=== PATIENT | female | born 2005 | race Caucasian/White ===

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

== ENCOUNTER 2024-05-25 14:23 | Emergency (ER) | payer MEDICAID, SELFPAY ==
[2024-05-25 14:25] VITALS: BP 132/96; PULSE 120; RESP 12; TEMP 36.7; O2SAT 98
--- NOTE | 2024-05-25 14:30 | DI.RAD_ITS ---
Exam(s) XR KNEE RT 4V AP,LAT,BLANCA,PAT EXAM: XR KNEE RT 4V AP,LAT,BLANCA,PAT CLINICAL HISTORY: dog bite, ?fracture. TECHNIQUE: 2D digital imaging was performed. Three views. COMPARISON: No exams were available for comparison FINDINGS: BONES: No acute fracture is present. No bony destructive lesion is seen. JOINTS: The knee is normally aligned. No joint effusion is seen. SOFT TISSUE: Laceration cm medial soft tissues. No foreign body. IMPRESSION: Medial soft tissue laceration. DATA REPOSITORY: RADIATION DOSE DELIVERED:
--- NOTE | 2024-05-25 14:35 | ED.GENADUL_ITS ---
Discharge Plan Disposition Patient Disposition: Home Condition: Stable Discharge Details Clinical Impression: Dog bite of right knee Primary Care Provider: Xena Murrieta ED Provider: Dayton Souza Home Meds and New Rx's Prescriptions: New amoxicillin-pot clavulanate 875-125 mg tablet 1 tab PO BID Qty: 20 0RF Continued famotidine 10 mg tablet 10 mg PO BID Qty: 60 1RF tretinoin 0.05 % cream 1 applic topical QHS Qty: 45 1RF ondansetron HCl 4 mg tablet 4 mg PO Q8H PRN (Reason: nausea and vomiting) Qty: 10 0RF acetaminophen [Tylenol Extra Strength] 500 mg Tablet 500 mg PO Q4H PRN ibuprofen [Ibuprofen IB] 200 mg Tablet 600 mg PO Q6H PRN loratadine [Claritin] 10 mg Tablet 10 mg PO PRN PRN Discharge Instructions Additional Instructions: Keep the wound covered and apply topical antibiotic such as Neosporin or bacitracin until it healed. If you have spreading redness from the wound or yellow-white discharge from the wound return to the emergency department for reevaluation HPI General Mode of arrival: ambulatory . Date/Time Provider Initiated Documentation: 05/25/24 14:27 . Limitations to Documentation: no limitations . Information obtained by: patient . History of Present Illness 18 year old F presents to the emergency department with the chief complaint of right knee dog bite, described as mild, Quality is described as aching, and is localized to the right and lower extremity. Patient reports no radiation. Patient started experiencing this hour(s) (1) and it has been constant. No relieving factors improve symptom(s), No exacerbating factors reported . Patient notes no other symptoms.. Patient did receive the following treatments prior to arrival, none Related Data Home Medications ?Medication ?Instructions ?Recorded ?Confirmed acetaminophen 500 mg tablet 500 mg PO Q4H PRN 08/29/18 05/25/24 (Tylenol Extra Strength) ibuprofen 200 mg tablet (Ibuprofen 600 mg PO Q6H PRN 11/19/18 05/25/24 IB) loratadine 10 mg tablet (Claritin) 10 mg PO PRN PRN 10/21/20 05/25/24 tretinoin 0.05 % topical cream 1 applic topical QHS #45 grams 10/25/20 05/25/24 famotidine 10 mg tablet 10 mg PO BID #60 tabs 07/10/21 05/25/24 ondansetron HCl 4 mg tablet 4 mg PO Q8H PRN nausea and 12/20/21 05/25/24 vomiting #10 tabs amoxicillin 875 mg-potassium 1 tab PO BID #20 tabs 05/25/24 clavulanate 125 mg tablet Previous Rx's ?Medication ?Instructions ?Recorded tretinoin 0.05 % topical cream 1 applic topical QHS #45 grams 10/25/20 famotidine 10 mg tablet 10 mg PO BID #60 tabs 07/10/21 ondansetron HCl 4 mg tablet 4 mg PO Q8H PRN nausea and 12/20/21 vomiting #10 tabs amoxicillin 875 mg-potassium 1 tab PO BID #20 tabs 05/25/24 clavulanate 125 mg tablet Allergies Allergy/AdvReac Type Severity Reaction Status Date / Time No Known Allergies Allergy Verified 12/24/23 16:58 General Stated Complaint: AnimalBite KASSIDY: 4 Review of Systems All systems reviewed & are unremarkable except as noted in HPI and below Constitutional Constitutional: Denies chills, Denies fever(s) and Denies weakness Gastrointestinal Gastrointestinal: Denies vomiting Musculoskeletal Musculoskeletal: Denies joint swelling Neurologic Neurologic: Denies weakness Exam Const General: no acute distress Orientation: alert HENCA Head: normal to inspection Ears: external ears normal General nose exam: external nose normal Mouth: moist mucous membranes Eyes General: appearance normal, both eyes and all related structures Neck Neck: normal visual inspection Resp Effort & Inspection: normal respiratory effort and able to speak in complete sentences Cardio Rate: regular rate Skin General skin exam: no rashes or lesions noted Neuro General: patient alert and patient oriented x3 Extrem General: full ROM and capillary refill normal Psych Mental Status: mental status grossly normal Course Vital Signs Vital signs: Vital Signs Temperature 36.7 C 05/25/24 14:25 Pulse 120 H 05/25/24 14:25 Respiratory Rate 12 05/25/24 14:25 Blood Pressure 132/96 H 05/25/24 14:25 Pulse Oximetry 98 05/25/24 14:25 Temperature 36.7 C 05/25/24 14:25 Pulse 120 H 05/25/24 14:25 Respiratory Rate 12 05/25/24 14:25 Blood Pressure 132/96 H 05/25/24 14:25 Pulse Oximetry 98 05/25/24 14:25 Oxygen Delivery Method Room Air 05/25/24 14:25 Oxygen Flow Rate 0 05/25/24 14:25 Pain Level 6 05/25/24 14:25 Medical Decision Making 18-year-old female comes in with a dog bite to the right knee. She says that her dog and friend's dog were playing and they tried to break them up one of the dogs bit her right knee. Did not fall or sustain any other injuries. She says both dogs are up-to-date on the rabies shots. She is alert and oriented on arrival and appears well. She has a puncture wound on the right lateral mid knee with a 2 x 3 cm area where appears the skin has been ripped off and is superficial. She has full range of motion of the knee, intact distal sensation and pulses. There is no bleeding currently. Will obtain x-rays to exclude fracture vs foreign body. No acute findings on x-ray, patient stable. Wounds were copiously irrigated with sterile saline. Discussed placing a stitch or 2 in the wound on the left but she does not want stitches which I feel is reasonable given increased risk of infection. Will have nursing place Steri-Strips and place bacitracin on it and apply dressing. She is stable for discharge, advised follow-up with PCP as needed and return precautions given Differential Diagnosis Differential Diagnosis: Dog bite, abrasion Quality:SDOH Health Related Social Needs: No Data to Display PFSH All Active Problems (Updated 05/25/24 @ 15:20 by Dayton Souza MD) Dog bite of right knee (Acute) Acne (Acute) Depo-Provera contraceptive status (Acute) Pyelonephritis (Acute) Left flank pain (Acute) Menorrhagia (Chronic) With dysmenorrhea Constipation (Acute 09/13/08) Esotropia (Acute) Dental caries (Acute 09/21/17) Routine child health exam (Acute 02/02/14) Medical History Cat bite of left hand with infection Surgical History Tonsillectomy and adenoidectomy age 4 Myringotomy w/ PE (pressure equalizing) tubes age 4 Family History Grandmother Diabetes MGM - started in Mother Overweight Social History Smoking/Tobacco Use Status: Current-Occasional Tobacco Type: e-cigarettes Second Hand Exposure: Yes Smoking risk assessment performed?: Yes Alcohol Intake: current Alcohol Intake frequency: holidays/special occasions only Drug use: Occasionally Substance use type: marijuana Details: THC for sleep Housing: apartment Education Level: high school Details: 9th grade Current gender identity: female Seatbelt use: always Helmet use: Yes Helmet use: sometimes Fire extinguisher in home: No Carbon monox detector in home: Yes Firearms in home: No Do you feel safe at home: Yes Do you feel safe in your relationship?: Yes
[2024-05-25] MEDS: Lidocaine/Epinephri/Tetracaine Topical Gel 3 ML TP (14:38)
[2024-05-25] MEDS: Amoxicillin 875/Clav. 125 TAB PO (14:38)
[2024-05-25 14:42] VITALS: RESP 16; O2SAT 100
== END 2024-05-25 15:36 | disposition home or self-care (01) ==
PROVIDERS: Emergency Provider Emergency Medicine; PCP Nurse Practitioner Family
DX: S81.011A Laceration without foreign body, right knee, initial encounter (principal); F17.290 Nicotine dependence, other tobacco product, uncomplicated; W54.0XXA Bitten by dog, initial encounter; Y93.89 Activity, other specified; Y92.018 Other place in single-family (private) house as the place of occurrence of the external cause
CPT/HCPCS: 99283; 73564

== ENCOUNTER 2025-01-21 14:25 | Emergency (ER) | payer SELFPAY ==
[2025-01-21 14:28] VITALS: BP 113/69; PULSE 103; RESP 20; TEMP 36.7; O2SAT 99
[2025-01-21 14:31] VITALS: BP 113/69; PULSE 103; RESP 20; TEMP 36.7; O2SAT 99
--- NOTE | 2025-01-21 14:45 | ED.GENADUL_ITS ---
Discharge Plan Disposition Patient Disposition: Home Discharge Details Clinical Impression: Dysuria, Hypokalemia Primary Care Provider: Xena Murrieta ED Provider: Elenita Thibodeaux Home Meds and New Rx's Prescriptions: New cephalexin 500 mg capsule 500 mg PO BID 4 Days Qty: 8 0RF phenazopyridine [Pyridium] 100 mg tablet 100 mg PO TID PRNQty: 14 0RF No Action acetaminophen [Tylenol Extra Strength] 500 mg Tablet 500 mg PO Q4H PRN ibuprofen [Ibuprofen IB] 200 mg Tablet 600 mg PO Q6H PRN loratadine [Claritin] 10 mg Tablet 10 mg PO PRN PRN Discharge Instructions Instructions: Dysuria (ED) Additional Instructions: take the antibiotics as prescribed use the pyridium as needed for symptoms follow up with PCP if you symptoms recur HPI General Date/Time Provider Initiated Documentation: 01/21/25 14:26 . Limitations to Documentation: no limitations . Information obtained by: patient . HPI Narrative: 19-year-old female without significant past medical history presents for evaluation of dysuria and right-sided flank pain. She reports that she has had symptoms for about a week. She reports that the symptoms are consistent with prior urinary tract infection. She states that she has been taking [id number] Azo urinary defense without improvement. Denies any fever, chills nausea or vomiting. Has been eating and drinking normally. Related Data Home Medications ?Medication ?Instructions ?Recorded ?Confirmed acetaminophen 500 mg tablet 500 mg PO Q4H PRN 08/29/18 01/21/25 (Tylenol Extra Strength) ibuprofen 200 mg tablet (Ibuprofen 600 mg PO Q6H PRN 11/19/18 01/21/25 IB) loratadine 10 mg tablet (Claritin) 10 mg PO PRN PRN 10/21/20 01/21/25 cephalexin 500 mg capsule 500 mg PO BID 4 days #8 caps 01/21/25 phenazopyridine 100 mg tablet 100 mg PO TID PRN #14 tabs 01/21/25 (Pyridium) Previous Rx's ?Medication ?Instructions ?Recorded cephalexin 500 mg capsule 500 mg PO BID 4 days #8 caps 01/21/25 phenazopyridine 100 mg tablet 100 mg PO TID PRN #14 tabs 01/21/25 (Pyridium) Allergies Allergy/AdvReac Type Severity Reaction Status Date / Time No Known Allergies Allergy Verified 01/21/25 14:32 General Stated Complaint: Urinary KASSIDY: 3 Exam Narrative Exam Narrative: Review of Systems: All systems reviewed & are unremarkable except as noted in HPI and below Well-developed, no acute distress Afebrile NCAT Mild tachycardia Unlabored respiratory effort, clear bilaterally Nondistended abdomen , soft no suprapubic tenderness, right CVA tenderness Course Vital Signs Vital signs: Vital Signs Temperature 36.7 C 01/21/25 14:28 Pulse 103 H 01/21/25 14:28 Respiratory Rate 20 01/21/25 14:28 Blood Pressure 113/69 01/21/25 14:28 Pulse Oximetry 99 01/21/25 14:28 Temperature 36.7 C 01/21/25 14:31 Pulse 103 H 01/21/25 14:31 Respiratory Rate 20 01/21/25 14:31 Blood Pressure 113/69 01/21/25 14:31 Blood Pressure Position Sitting 01/21/25 14:31 Pulse Oximetry 99 01/21/25 14:31 Oxygen Delivery Method Room Air 01/21/25 14:31 Oxygen Flow Rate 0 01/21/25 14:31 Medical Decision Making Emergency evaluation of dysuria. The patient is afebrile and hemodynamically stable though noted to be slightly tachycardic. She has been taking [id number] Azo urinary defense. And symptoms do feel consistent with prior urinary tract infections. Initial differential includes UTI, cystitis, pyelonephritis seems less likely but she does have some CVA tenderness. Lab work was obtained, there is no leukocytosis or anemia. She does have normal renal function. Potassium is 3.3 which was replaced orally. Her urinalysis does show some increased signs of white blood cell and rare bacteria but otherwi se unremarkable. I think that this might be because she has been taking the urinary defense. Given her symptoms, I will go ahead and treat with an antibiotic and Pyridium. If her symptoms are not improving she should follow-up with PCP for further evaluation. Quality:SDOH Health Related Social Needs: No Data to Display PFSH All Active Problems (Updated 01/21/25 @ 15:44 by Elenita Thibodeaux MD) Hypokalemia (Acute) Dysuria (Acute) Acne (Acute) Depo-Provera contraceptive status (Acute) Pyelonephritis (Acute) Left flank pain (Acute) Menorrhagia (Chronic) With dysmenorrhea Constipation (Acute 09/13/08) Esotropia (Acute) Dental caries (Acute 09/21/17) Routine child health exam (Acute 02/02/14) Medical History Cat bite of left hand with infection Surgical History Tonsillectomy and adenoidectomy age 4 Myringotomy w/ PE (pressure equalizing) tubes age 4 Family History Grandmother Diabetes MGM - started in Mother Overweight Social History Smoking/Tobacco Use Status: Current-Occasional Tobacco Type: e-cigarettes Second Hand Exposure: Yes Smoking risk assessment performed?: Yes Alcohol Intake: current Alcohol Intake frequency: holidays/special occasions only Drug use: Occasionally Substance use type: marijuana Details: THC for sleep Housing: apartment Education Level: high school Details: [employer] 9th grade Current gender identity: female Seatbelt use: always Helmet use: Yes Helmet use: sometimes Fire extinguisher in home: No Carbon monox detector in home: Yes Firearms in home: No Do you feel safe at home: Yes Do you feel safe in your relationship?: Yes PAWSS Have you Been Recently Intoxicated or Drunk Within the Last 30 days?: No Have you Ever Experienced Previous Episodes of Alcohol Withdrawal?: No Have you ever Experienced Withdrawal Seizures?: No Have you ever Experienced Delirium Tremens(DT)s?: No Have you ever undergone Alcohol Rehabilitation Treatment (i.e, inpt ot outpatient treatment programs)?: No Have you ever Experienced Blackouts?: No Have you ever Combined Alcohol with other Downers within the last 90 days?: No Have you ever Combined Alcohol with any other Substance of Abuse during the last 90 days?: No Positive Blood Alcohol level on Presentation? [PCS.BAL]: No Evidence of Increased Autonomic Activity (i.e. HR>120, tremor, sweating, agitation, nausea)?: No Result: 0
[2025-01-21] MEDS: Normal Saline 1,000 ML 1000 ML IV (14:50)
[2025-01-21 15:04] LABS: Abs Immature Grans 0.02 10^3/uL (0.0-0.06); Absolute Basophil Count 0.04 10^3/uL (0.0-0.2); Absolute Eosinophil Count 0.21 10^3/uL (0.0-0.7); Absolute Lymphocyte Count 1.88 10^3/uL (1.2-3.4); Absolute Monocyte Count 0.46 10^3/uL (0.1-0.8); Absolute Neutrophil Count 5.86 10^3/uL (1.2-6.7); Basophils % 0.5 %; Eosinophils % 2.5 %; HCT 40.5 % (36.0-46.0); HGB 13.7 g/dL (11.2-15.7); Immature Grans % 0.2 %; Lymphocytes % 22.2 %; MCH 29.5 pg (27.0-33.0); MCHC 33.8 % (32.0-36.0); MCV 87 fL (80-95); MPV 9.7 fL (8.0-11.0); Monocytes % 5.4 %; Neutrophils % 69.2 %; Platelet Count 179 10^3/uL (130-400); RBC 4.65 10^6/uL (3.93-5.22); RDW 12.8 % (11.7-14.6); WBC 8.47 10^3/uL (4.4-10.8)
[2025-01-21 15:08] LABS: Bilirubin Negative (Negative); Blood Trace-intact (Negative); Clarity Clear (Clear); Glucose Negative (Negative); Ketones Negative (Negative); Leukocyte Esterase Negative (Negative); Nitrite Negative (Negative); Specific Gravity 1.025 (1.005-1.025); Urobilinogen 0.2 mg/dL (Up to 0.2); pH 5.5 (5-8)
[2025-01-21 15:15] LABS: Bacteria Rare HPF (Negative); C & S Indicated? No; Crystals Negative HPF (Negative); Epithelial Cells Few HPF (Negative); Mucus Moderate (Negative); RBC 0-2 HPF (0-2)
[2025-01-21 15:39] LABS: Anion Gap 7.8 mmol/L (3-11); BUN 13 mg/dL (7-18); CO2 26.2 mmol/L (21.0-32.0); CREATININE 0.9 mg/dL (0.55-1.02); Calcium 9.3 mg/dL (8.5-10.1); Chloride 105 mmol/L (98-107); Estimated GFR 93.86 (mL/min/1.73m2); Glucose 92 mg/dL (74-106); Potassium 3.3 mmol/L (3.5-5.1); Sodium 139 mmol/L (136-145)
[2025-01-21] MEDS: Cephalexin 500 MG CAP, 2 CAPS/BTL PO (15:57)
[2025-01-21] MEDS: Cephalexin 500 MG CAP PO (15:57)
[2025-01-21] MEDS: Ketorolac 15 MG/ML VIAL IVP (15:57)
[2025-01-21] MEDS: Potassium Chloride Liquid 20 MEQ PKT 40 MEQ PO (16:03)
== END 2025-01-21 16:15 | disposition home or self-care (01) ==
LOC: ER 16:09
PROVIDERS: Emergency Provider Emergency Medicine; PCP Nurse Practitioner Family
DX: R30.0 Dysuria (principal); E87.6 Hypokalemia
CPT/HCPCS: 99283; 99284; 96374; 81025; 80048; 96361; 81003; 81015; 85025; J1885

== ENCOUNTER 2025-05-11 11:27 | Emergency (ER) | payer MEDICAID, SELFPAY ==
[2025-05-11 11:30] VITALS: BP 135/74; PULSE 86; RESP 16; TEMP 36.7; O2SAT 98
[2025-05-11 11:34] VITALS: BP 135/74; PULSE 86; RESP 16; TEMP 36.7; O2SAT 98
--- NOTE | 2025-05-11 12:09 | ED.GENADUL_ITS ---
Discharge Plan Disposition Patient Disposition: Home Discharge Details Clinical Impression: Bacterial vaginosis, Vaginal discharge, Acute upper respiratory infection Primary Care Provider: Xena Murrieta ED Provider: Donald Garcia Home Meds and New Rx's Prescriptions: New doxycycline hyclate 100 mg tablet 100 mg PO BID 7 Days Qty: 14 0RF loratadine 10 mg tablet 10 mg PO DAILY Qty: 10 0RF No Action acetaminophen [Tylenol Extra Strength] 500 mg Tablet 500 mg PO Q4H PRN ibuprofen [Ibuprofen IB] 200 mg Tablet 600 mg PO Q6H PRN loratadine [Claritin] 10 mg Tablet 10 mg PO PRN PRN Discharge Instructions Instructions: Bacterial Vaginosis ED, Upper Respiratory Infection ED Additional Instructions: At this time your initial STD testing is positive for bacterial vaginosis which is a non-STD, which is secondary to an over accumulation of normal vaginal bacterial pete. You have been given the treatment for this. Additionally we have tested for gonorrhea and chlamydia, and we are awaiting those test results to return. We have started you on a prophylactic treatment for this, which will also help treat any pneumonia or bronchitis. Please take the doxycycline as prescribed. It has been sent to your pharmacy on file. Please take it after taking food otherwise it will cause nausea and vomiting. Please make sure to avoid any significant calcium based products while on this medication as it can decrease its effectiveness. Additionally please take the loratadine to help reduce your nasal secretions and congestion. Please always use protection when having sexual intercourse. And avoid any intercourse or vaginal sexual relations until you have completed your course of antibiotics and the testing results have returned. If you notice any worsening of your symptoms, or any new symptoms such as vomiting, diarrhea, fever, chills, shortness of breath, chest pain, numbness, weakness, or fainting , please return immediately to the emergency department for reevaluation. Please follow up with your primary care provider as soon as possible for reassessment and reevaluation. As always, it was a pleasure participating in your medical care today. Stand Alone Forms: Work Release Referrals: Xena Murrieta, [employer] [Primary Care Provider, Pediatrics Medical] HPI General Date/Time Provider Initiated Documentation: 05/11/25 11:50 . HPI Narrative: This is a 19-year-old female who denies any significant past medical history who presents today for evaluation of runny nose, congestion, cough, as well as STD evaluation. In regards to her URI symptoms, she states that 1 week ago she developed mild cough with congestion, however this is worsened over the last 3 days. She has yellow sputum that she is coughing up. She denies any hemoptysis. No chest pain. She does vape but does not smoke tobacco products. She denies fever but does admit to facial congestion. No ear pain. No other complaints in regards to that. In addition to this, the patient also states that 1 month ago she had unprotected intercourse with a male partner. A friend of the male partner recently contacted her and stated that he just contracted chlamydia. Patient has noted that over the last 4 days she had slightly pink discharge compared to normal, last menstrual cycle was 3 to 4 days ago, but no other abnormalities. No pelvic pain, no excessive discharge, no other complaints. No dysuria or frequency. She states that she would like to be tested for potential STDs. Related Data Home Medications ?Medication ?Instructions ?Recorded ?Confirmed acetaminophen 500 mg tablet 500 mg PO Q4H PRN 08/29/18 05/11/25 (Tylenol Extra Strength) ibuprofen 200 mg tablet (Ibuprofen 600 mg PO Q6H PRN 0 11/19/18 05/11/25 IB) loratadine 10 mg tablet (Claritin) 10 mg PO PRN PRN 05/11/25 doxycycline hyclate 100 mg tablet 100 mg PO BID 7 days #14 tabs 05/11/25 loratadine 10 mg tablet 10 mg PO DAILY #10 tabs 04/15 05/08 Previous Rx's ?Medication ?Instructions ?Recorded doxycycline hyclate 100 mg tablet 100 mg PO BID 7 days #14 tabs 05/11/25 loratadine 10 mg tablet 10 mg PO DAILY #10 tabs 04/15 05/08 Allergies Allergy/AdvReac Type Severity Reaction Status Date / Time No Known Allergies Allergy Verified 05/11/25 11:34 General Stated Complaint: RespSymp KASSIDY: 4 Exam Narrative Exam Narrative: 1.Const: Well-nourished, Well-developed, appearing stated age 2.Eyes: PERRL, no conjunctival injection, and symmetrical lids. 3.ENT: Atraumatic external nose and ears. Moist MM. Neck: Symmetric, trachea midline, No thyromegaly. 4.CVS: +S1/S2, Peripheral pulses 2+ and equal in all extremities. Brisk capillary refill in all extremities. 5.RESP: Unlabored respiratory effort. Clear to auscultation bilaterally. No wheezes rales or rhonchi 6.GI: Soft, Nontender/Nondistended, No hepatosplenomegaly. No guarding or rebound. Vaginal exam was performed with female nurse Maile at bedside. Vaginal exam demonstrates small amount of blood in the vaginal vault, it is dark in color. No active bleeding. No large lesions around the cervix. No significant tenderness. 7.MSK: Normocephalic/Atraumatic, Extremities w/o deformity or ttp No cyanosis or clubbing, Normal movement of all extremities 8.Skin: Warm, Dry. No rashes or lesions. 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 Sensation grossly intact, no focal neurologic deficits. 10.Psych: (AAO) x3. Appropriate mood and affect Course Vital Signs Vital signs: Vital Signs Temperature 36.7 C 05/11/25 11:30 Pulse 86 05/11/25 11:30 Respiratory Rate 16 05/11/25 11:30 Blood Pressure 135/74 05/11/25 11:30 Pulse Oximetry 98 05/11/25 11:30 Temperature 36.7 C 05/11/25 11:34 Pulse 86 05/11/25 11:34 Respiratory Rate 16 05/11/25 11:34 Blood Pressure 135/74 05/11/25 11:34 Pulse Oximetry 98 05/11/25 11:34 Pain Level 0 05/11/25 11:34 Medical Decision Making This is a 19-year-old female who denies any significant past medical history who presents today for evaluation of runny nose, congestion, cough, as well as STD evaluation. In regards to her URI symptoms, she states that 1 week ago she developed mild cough with congestion, however this is worsened over the last 3 days. She has yellow sputum that she is coughing up. She denies any hemoptysis. No chest pain. She does vape but does not smoke tobacco products. She denies fever but does admit to facial congestion. No ear pain. No other complaints in regards to that. In addition to this, the patient also states that 1 month ago she had unprotected intercourse with a male partner. A friend of the male partner recently contacted her and stated that he just contracted chlamydia. Patient has noted that over the last 4 days she had slightly pink discharge compared to normal, last menstrual cycle was 3 to 4 days ago, but no other abnormalities. No pelvic pain, no excessive discharge, no other complaints. No dysuria or frequency. She states that she would like to be tested for potential STDs. Exam demonstrates relatively clear lungs, no evidence of otitis media. No erythema in the posterior oropharynx. Vaginal exam demonstrates a small amount of blood around the cervix, no cervical lesions or other abnormalities or active hemorrhage. Concern for potential post menstrual cycle bleeding, STD is not otherwise excluded though. Suspect viral etiology with congestion, mild sinus irritation but no evidence of severe sinusitis. No otitis media. Potential early bronchitis though. Patient has elected for prophylactic treatment of gonorrhea and chlamydia. Will give 500 mg ceftriaxone and a 7-day course of doxycycline, which will also cover bronchial infectious etiologies. Will give loratadine to help with congestion. 2:31 PM Laboratory workup has returned, patient's vaginal path screen is positive for Gardnerella, negative for Katina or trichomoniasis. Will give oral metronidazole. Patient will be started on doxycycline for outpatient treatment for chlamydia and gonorrhea. Recommend sexual protections, avoidance of intercourse until treatment course has been completed. Recommend continued loratadine and doxycycline for URI symptoms. Discussed red flags which return. I have extensively reviewed the treatment plan and discharge instructions with the patient. I have addressed all patient concerns at this time. The patient was made aware of what symptoms to monitor for that would warrant a return to the emergency department. Discussed the plan with the patient, they demonstrate verbal understanding and agreement with our assessment and plan at this time. The documentation in this chart was dictated using [employer] dictation software. Please excuse any dictation errors. PFSH All Active Problems (Updated 05/11/25 @ 14:09 by Donald Garcia DO) Acute upper respiratory infection (Acute) Vaginal discharge (Acute) Bacterial vaginosis (Acute) Acne (Acute) Depo-Provera contraceptive status (Acute) Pyelonephritis (Acute) Left flank pain (Acute) Menorrhagia (Chronic) With dysmenorrhea Constipation (Acute 09/13/08) Esotropia (Acute) Dental caries (Acute 09/21/17) Routine child health exam (Acute 02/02/14) Medical History Cat bite of left hand with infection Surgical History Tonsillectomy and adenoidectomy age 4 Myringotomy w/ PE (pressure equalizing) tubes age 4 Family History Grandmother Diabetes MGM - started in Mother Overweight Social History Smoking/Tobacco Use Status: Current-Occasional Tobacco Type: e-cigarettes Second Hand Exposure: Yes Smoking risk assessment performed?: Yes Alcohol Intake: current Alcohol Intake frequency: holidays/special occasions only Drug use: Occasionally Substance use type: marijuana Details: THC for sleep Housing: apartment Education Level: high school Details: [employer] 9th grade Current gender identity: female Seatbelt use: always Helmet use: Yes Helmet use: sometimes Fire extinguisher in home: No Carbon monox detector in home: Yes Firearms in home: No Do you feel safe at home: Yes Do you feel safe in your relationship?: Yes
[2025-05-11] MEDS: Lidocaine 1% Multi-Dose 50 ML VIAL (13:08)
[2025-05-11] MEDS: cefTRIAXone 1 GM VIAL 0.5 GM IM (13:18)
[2025-05-11] MEDS: Doxycycline Hyclate 100 MG, 2 CAPS/BTL PO (13:20)
[2025-05-11] MEDS: Loratidine 10 MG TAB 20 MG PO (13:21)
[2025-05-11] MEDS: Fluconazole 150 MG TAB PO (14:12)
[2025-05-11 14:20] VITALS: BP 115/81; PULSE 72; RESP 16; TEMP 37.1; O2SAT 100
[2025-05-11 15:00] LABS: Glucose Negative (Negative)
[2025-05-11 15:09] LABS: C & S Indicated? No; RBC 0-2 HPF (0-2); WBC Negative HPF (0-5)
[2025-05-15 12:15] LABS: Chlamydia Result Invalid (Negative); GC Result Invalid (Negative)
== END 2025-05-11 14:22 | disposition home or self-care (01) ==
PROVIDERS: Emergency Provider Student in an Organized Health Care Education/Training Program; PCP Nurse Practitioner Family
DX: J06.9 Acute upper respiratory infection, unspecified (principal); N76.0 Acute vaginitis
CPT/HCPCS: 81025; 87491; 87591; 96372; 99284; 81003; 81015; 87480; 87510; 87660; 99283; J0696; J2003